=== PATIENT | female | born 2000 | race Caucasian/White ===

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

== ENCOUNTER → 2022-12-21 | Outpatient (CLI) | payer OTHER, SELFPAY ==
[2023-02-19 20:52] LABS: HPV Reflexed? NOT INDICATED
== END | disposition home or self-care (01) ==
LOC: LABSPEC 12:31
PROVIDERS: PCP Nurse Practitioner Family; Referring Provider Nurse Practitioner Women's Health; Visit Provider Nurse Practitioner Women's Health
DX: Z12.4 Encounter for screening for malignant neoplasm of cervix (principal)
CPT/HCPCS: 88175; G0145